=== PATIENT | male | born 1960 | race Caucasian/White ===

== ENCOUNTER → 2018-06-28 | Outpatient (CLI) | payer OTHER ==
[~2018-06-28] MED LIST: ATOR-2 PO; CHOL100011 PO; CLOP75TA PO; CYAN500L4 PO; FURO20TA3 PO; HYDR25TA6 PO; INSU100V5 SQ-INSULIN; INSU100V8 SQ; ISOS20TA3 PO; LISI-170 PO; NITR0.4T28 SL; OMEP-110 PO; POTASSIUM PO; PRAV80TA2 PO; RIVA20TA PO; SOTA80TA PO; TRAM50TA2 PO
== END | disposition home or self-care (01) ==
LOC: CVU 12:13
PROVIDERS: ATTEND Internal Medicine Cardiovascular Disease
DX: I11.9 Hypertensive heart disease without heart failure (principal); I25.10 Atherosclerotic heart disease of native coronary artery without angina pectoris; I48.91 Unspecified atrial fibrillation
CPT/HCPCS: C8929; Q9957

== ENCOUNTER 2019-11-22 14:41 | Inpatient (IN) | payer OTHER ==
[~2019-11-22] VITALS: Ht 172.7 cm; Wt 135.5 kg
[2019-11-22] MEDS ORDERED: SODIUM CHLORIDE FLUSH 10ML SYR IVF ONE ×2 (15:30→16:00)
--- NOTE | 2019-11-22 15:38 | NUR ---
THIS IS A 59 YO MALE SENT FROM DR. RODRIGUEZ'S OFFICE FOR WORSENING CHEST PAIN AND SOB SINCE WEDNESDAY. PATIENT HAS HX OF CAD WITH STENTS PLACED. C/O RIGHT SIDED CHEST PAIN TAHT RADIATED TO JAW THIS MORNING, WHICH HAS SINCE RESOLVED. PAIN IS 6/10 WITH NO RADIATION AT THIS TIME, RESPIRATIONS ARE EVEN AND MILDLY LABORED, LUNG SOUNDS CLEAR BUT DIMINISHED THROUGHOUT. ALL MONITORING IN PLACE, AFIB ON MONITOR (HX OF AFIB). VSS, NADN AT THIS TIME. CALL LIGHT IN REACH. ANNY NICHOLSON TO ROOM FOR EVAL
--- NOTE | 2019-11-22 15:53 | NUR ---
PIV PLACED, LABS SENT
--- NOTE | 2019-11-22 15:59 | NUR ---
CARDIOLOGY CONSULT IN ROOM AT THIS TIME
[2019-11-22] MEDS ORDERED: MORPHINE SULFATE 4 MG/ML, 1ML IVPush PRN ×2 (16:00→22:30)
[2019-11-22] MEDS ORDERED: ONDANSETRON 2MG/ML, 2ML IVPush ONE (16:00)
[2019-11-22 16:06] LABS: BASOPHILS # (AUTO) 0.02 x10^3/uL (0-0.1); BASOPHILS % (AUTO) 0 % (0-1); EOSINOPHILS # (AUTO) 0.33 x10^3/uL (0-0.4); EOSINOPHILS % (AUTO) 4 % (1-7); LYMPHOCYTES % (AUTO) 16 % (22-44); MD NO; MEAN CORPUSCULAR HGB CONC 32.6 g/dL (33.2-36.2); MEAN CORPUSCULAR VOLUME 85.7 fL (81-97); MEAN PLATELET VOLUME 8.6 fL (7.4-10.4); MONOCYTES # (AUTO) 0.76 x10^3/uL (0.2-0.8); MONOCYTES % (AUTO) 10 % (2-9); NEUTROPHILS # (AUTO) 5.35 x10^3/uL (1.8-6.8); NEUTROPHILS % (AUTO) 70 % (42-75); PLATELET COUNT 206 x10^3/uL (130-400); RED CELL DISTRIBUTION WIDTH 15.1 % (9.4-14.8)
[2019-11-22] MEDS ORDERED: ONDANSETRON 2MG/ML, 2ML ONE (16:11)
[2019-11-22] MEDS ORDERED: MORPHINE SULFATE 4 MG/ML, 1ML ONE (16:11)
[2019-11-22 16:13] LABS: ALANINE AMINOTRANSFERASE 19 U/L (12-78); ALBUMIN 3.1 g/dL (3.4-5.0); ANION GAP 7 mmol/L (5-15); CHLORIDE 107 mmol/L (98-107); CREATININE 2.52 mg/dL (0.7-1.3)
[2019-11-22 16:17] LABS: ALKALINE PHOSPHATASE 108 U/L (45-117); BILIRUBIN,TOTAL 0.3 mg/dL (0.2-1.0); TOTAL PROTEIN 6.6 g/dL (6.4-8.2); TROPONIN I < 0.015 ng/mL (0.000-0.045)
--- NOTE | 2019-11-22 16:27 | NUR ---
PATIENT MEDICATED PER EMAR, TOLERATED WELL.
--- NOTE | 2019-11-22 16:28 | NUR ---
PLACED ON 2L NC FOR PER PATIENT REQUEST FOR COMFORT
[2019-11-22] MEDS ORDERED: NITROGLYCERIN 0.4 MG/SPRAY SL PRN (16:30)
[2019-11-22] MEDS ORDERED: NITROGLYCERIN 0.4 MG BOTTLE (25 TABS) SL PRN (16:30)
[2019-11-22 16:42] LABS: INTERNATIONAL NORMALIZED RATIO 1.1 (0.93-1.1); PROTHROMBIN TIME 11.7 Seconds (9.6-11.5)
--- NOTE | 2019-11-22 16:52 | NUR ---
SECONDARY PIV (LARGE BORE) PLACED PER ADMITTING ORDERS FOR ANGIOGRAM. TAKE AWAY MAN IN ROOM NOW FOR CONSULT
[2019-11-22] MEDS ORDERED: HEPARIN 5,000 UNITS/ML, 1ML IV PRN (17:00)
[2019-11-22] MEDS ORDERED: HEPARIN 5,000 UNITS/ML, 1ML IV ONE (17:00)
[2019-11-22] MEDS ORDERED: HEPARIN 25,000 UNITS/250ML PMX 250 ML IV PRN (17:00)
[2019-11-22] MEDS ORDERED: FLUT1DIS3 INH (17:25)
[2019-11-22] MEDS ORDERED: BIFI4CAP PO (17:25)
[2019-11-22] MEDS ORDERED: AMIO100T4 PO (17:26)
[2019-11-22] MEDS ORDERED: INSU100I34 SQ-INSULIN (17:26)
[2019-11-22] MEDS ORDERED: FISH OIL (17:27)
[2019-11-22] MEDS ORDERED: HYDR25TA6 PO (17:27)
[2019-11-22] MEDS ORDERED: ISOS120T4 PO (17:28)
[2019-11-22] MEDS ORDERED: HYDR-826 PO (17:28)
[2019-11-22] MEDS ORDERED: DOXE6TAB3 PO (17:29)
[2019-11-22] MEDS ORDERED: INSU100C5 SQ-INSULIN (17:29)
[2019-11-22] MEDS ORDERED: VITAMIN A (17:30)
[2019-11-22] MEDS ORDERED: TIOT4MIS5 INH (17:30)
--- NOTE | 2019-11-22 17:38 | NUR ---
REPORT GIVEN TO LES LUEVANO. PLAN OF CARE DISCUSSED
[2019-11-22 18:30] VITALS: BP 144/71
[2019-11-22 21:40] VITALS: BP 137/67
[2019-11-22 22:22] LABS: MICROSCOPIC NOT IND
[2019-11-22] MEDS: INSULIN LISPRO 100 UNITS/ML, PEN SQ-INSULIN SCH (22:58)
[2019-11-23 01:34] LABS: BASOPHILS # (AUTO) 0.04 x10^3/uL (0-0.1); BASOPHILS % (AUTO) 1 % (0-1); EOSINOPHILS # (AUTO) 0.31 x10^3/uL (0-0.4); EOSINOPHILS % (AUTO) 4 % (1-7); LYMPHOCYTES # (AUTO) 1.31 x10^3/uL (1-3.4); LYMPHOCYTES % (AUTO) 18 % (22-44); MD NO; MEAN CORPUSCULAR HGB CONC 32.8 g/dL (33.2-36.2); MEAN CORPUSCULAR VOLUME 85.5 fL (81-97); MEAN PLATELET VOLUME 8.3 fL (7.4-10.4); MONOCYTES # (AUTO) 0.77 x10^3/uL (0.2-0.8); MONOCYTES % (AUTO) 11 % (2-9); NEUTROPHILS # (AUTO) 4.91 x10^3/uL (1.8-6.8); NEUTROPHILS % (AUTO) 67 % (42-75); PLATELET COUNT 191 x10^3/uL (130-400); RED BLOOD COUNT 4.39 x10^6/uL (4.38-5.82); RED CELL DISTRIBUTION WIDTH 15.2 % (9.4-14.8)
[2019-11-23 01:41] LABS: % IRON SATURATION 19 % (20-55); ANION GAP 8 mmol/L (5-15); CALCIUM 8.5 mg/dL (8.5-10.1); CHLORIDE 104 mmol/L (98-107); IRON LEVEL 47 mcg/dL (65-175); TOTAL IRON BINDING CAPACITY 250 mcg/dL (250-450)
[2019-11-23 02:00] VITALS: BP 139/73
[2019-11-23] MEDS: INSULIN LISPRO 100 UNITS/ML, PEN SQ-INSULIN SCH ×6 (07:00→23:03)
[2019-11-23 09:29] VITALS: BP 125/58
[2019-11-23] MEDS ORDERED: SODIUM CHLORIDE 0.45% 1,000 ML IV SCH (10:00)
[2019-11-23] MEDS: FLUTICASONE/VILANTEROL 100-25MCG/INH INH SCH (10:40)
[2019-11-23] MEDS: TIOTROPIUM BROMIDE 18 MCG/INH INH SCH (10:41)
[2019-11-23] MEDS ORDERED: DEXTROSE 4 GM TAB.CHEW PO PRN (13:00)
[2019-11-23] MEDS ORDERED: GLUCAGON 1 MG IM PRN (13:00)
[2019-11-23] MEDS ORDERED: DEXTROSE 50%, 50ML SYRINGE IVPush PRN (13:00)
[2019-11-23] MEDS ORDERED: MIDAZOLAM 1 MG/ML, 5ML ONE (13:05)
[2019-11-23] MEDS ORDERED: BIVALIRUDIN 250 MG ONE (13:05)
[2019-11-23] MEDS ORDERED: TICAGRELOR 90 MG TABLET ONE (13:05)
[2019-11-23] MEDS ORDERED: FENTANYL PF 100 MCG/2ML ONE (13:05)
[2019-11-23] MEDS ORDERED: VERAPAMIL 2.5 MG/ML, 2ML ONE (13:05)
[2019-11-23] MEDS ORDERED: LIDOCAINE 2%, 20ML ONE (13:06)
[2019-11-23 13:47] LABS: TROPONIN I < 0.015 ng/mL (0.000-0.045)
[2019-11-23 14:00] VITALS: BP 119/55
[2019-11-23 21:58] VITALS: BP 146/65
[2019-11-23] MEDS: SODIUM CHLORIDE FLUSH 10ML SYR IVF SCH (23:04)
[2019-11-24 01:05] VITALS: BP 136/54
[2019-11-24 04:45] LABS: ANION GAP 6 mmol/L (5-15); CALCIUM 8.4 mg/dL (8.5-10.1); CHLORIDE 105 mmol/L (98-107); CREATININE 1.94 mg/dL (0.7-1.3)
[2019-11-24] MEDS: INSULIN LISPRO 100 UNITS/ML, PEN SQ-INSULIN SCH ×2 (07:00)
[2019-11-24] MEDS: FLUTICASONE/VILANTEROL 100-25MCG/INH INH SCH (08:12)
[2019-11-24] MEDS: TIOTROPIUM BROMIDE 18 MCG/INH INH SCH (08:12)
[2019-11-24] MEDS: SODIUM CHLORIDE FLUSH 10ML SYR IVF SCH (08:13)
[2019-11-24 08:40] VITALS: BP 134/66
[2019-11-24] MEDS ORDERED: FUROSEMIDE 40 MG TABLET PO SCH (09:00)
[2019-11-24] MEDS ORDERED: AMIODARONE 200 MG TABLET PO SCH (09:00)
[2019-11-24] MEDS ORDERED: LISINOPRIL 20 MG TABLET PO SCH (09:00)
[2019-11-24] MEDS ORDERED: FLUTICASONE/VILANTEROL 100-25MCG/INH INH SCH (09:00)
[2019-11-24] MEDS ORDERED: SODIUM CHLORIDE 0.45% 1,000 ML IV SCH (10:00)
== END 2019-11-24 09:22 | disposition home or self-care (01) | DRG 287 ==
LOC: ED 16:36 → EDIP 16:43 → 5SO 18:23 → DCLOUNGE 11-24 09:15
PROVIDERS: ADMIT Internal Medicine Cardiovascular Disease; ATTEND Hospitalist
PROC: 5A09357 Assistance with Respiratory Ventilation, Less than 24 Consecutive Hours, Continuous Positive Airway Pressure (ICD-10-PCS; principal; 2019-11-23)
PROC: 4A023N7 Measurement of Cardiac Sampling and Pressure, Left Heart, Percutaneous Approach (ICD-10-PCS; 2019-11-23)
PROC: B2151ZZ Fluoroscopy of Left Heart using Low Osmolar Contrast (ICD-10-PCS; 2019-11-23)
PROC: B2111ZZ Fluoroscopy of Multiple Coronary Arteries using Low Osmolar Contrast (ICD-10-PCS; 2019-11-23)
DX: T82.855A Stenosis of coronary artery stent, initial encounter (principal); Z68.42 Body mass index [BMI] 45.0-49.9, adult; N17.9 Acute kidney failure, unspecified; N18.4 Chronic kidney disease, stage 4 (severe); I25.119 Atherosclerotic heart disease of native coronary artery with unspecified angina pectoris; E10.22 Type 1 diabetes mellitus with diabetic chronic kidney disease; E10.319 Type 1 diabetes mellitus with unspecified diabetic retinopathy without macular edema; E61.1 Iron deficiency; E66.01 Morbid (severe) obesity due to excess calories; E78.5 Hyperlipidemia, unspecified; G47.33 Obstructive sleep apnea (adult) (pediatric); I48.0 Paroxysmal atrial fibrillation; I12.9 Hypertensive chronic kidney disease with stage 1 through stage 4 chronic kidney disease, or unspecified chronic kidney disease; Y83.1 Surgical operation with implant of artificial internal device as the cause of abnormal reaction of the patient, or of later complication, without mention of misadventure at the time of the procedure; M19.90 Unspecified osteoarthritis, unspecified site; Z79.01 Long term (current) use of anticoagulants; I25.2 Old myocardial infarction; Z79.4 Long term (current) use of insulin; Z87.891 Personal history of nicotine dependence; Z99.2 Dependence on renal dialysis
CPT/HCPCS: 36415; 93458; J3490; 71045; 80048; 80053; 81003; 82728; 82962; 83540; 83550; 83880; 84100; 84484; 85025; 85520; 85610; 85730; 93005; 99156; C1760; C1769; C1894; G0378; J0583; J2250; J2405; J3010; J1815; J2270; Q0177; Q9967